=== PATIENT | female | born 1995 | race Caucasian/White ===

== ENCOUNTER 2016-10-28 01:49 | Emergency (ER) | payer BC ==
[2016-10-28 02:01] VITALS: RESP 16; TEMP 98.4
[2016-10-28] MEDS ORDERED: ONDANSETRON DISINTEGRATING 4 MG TAB ONE (02:12)
[2016-10-28] MEDS ORDERED: ONDANSETRON DISINTEGRATING 4 MG TAB PO ONE (02:14)
--- NOTE | 2016-10-28 02:16 | EDPHY ---
H & P Stated Complaint: vomiting since yesterday evening, possible blood in vomit Time Seen by Provider: 10/28/16 02:04 HPI/ROS: Chief complaint: Vomiting blood HPI: 21-year-old female states she was drinking alcohol for most of the day yesterday including beer and vodka. About 5 o'clock in the afternoon she started feeling nausea and started vomiting. Patient states she vomited again about 9 o'clock in the evening. Patient states that this is continued she woke up this morning felt nauseated and vomited bleed at this time there is some blood in it. States she has only been able to keep a few sips of water down since earlier today. Does not have any abdominal pain. No fevers or chills. No diarrhea. Does not have a history of any gastrointestinal problems in the past. ROS: 10 point Review of Systems is negative except as noted in the HPI. Past medical history: None Medications none Allergies: Latex Physical exam: Gen: Awake, Alert, No Distress HEENT: Nose: no rhinorrhea Eyes: PERRLA, EOMI Mouth: Moist mucosa Neck: Supple, no JVD Chest: nontender, lungs clear to auscultation Heart: S1, S2 normal, no murmur Abd: Soft, non-tender, no guarding Back: no CVA tenderness, no midline tenderness Ext: no edema, non-tender Skin: no rash Neuro: CN II-XII intact, Sensation grossly intact, Strength 5/5 in bilateral upper and lower extremities - Personal History LMP (Females 10-55): 22-28 Days Ago Current Tetanus/Diphtheria Vaccine: Yes - Medical/Surgical History Hx Asthma: Yes Hx Chronic Respiratory Disease: No Hx Diabetes: No Hx Cardiac Disease: No Hx Renal Disease: No Hx Cirrhosis: No Hx Alcoholism: No Hx HIV/AIDS: No Hx Splenectomy or Spleen Trauma: No Other PMH: PSHx: wisdom tooth extraction. PMHx: denies - Social History Smoking Status: Never smoked Constitutional: Initial Vital Signs Temperature (C) 36.9 C 10/28/16 01:57 Heart Rate 122 H 10/28/16 01:57 Respiratory Rate 16 10/28/16 01:57 Blood Pressure 132/79 H 10/28/16 01:57 O2 Sat (%) 95 10/28/16 01:57 O2 Delivery Mode Room Air Allergies/Adverse Reactions: Latex, Natural Rubber Allergy (Verified 10/28/16 01:56) Home Medications: Medication Instructions Recorded [place] 28 Tablet 10/28/16 Departure - Departure Disposition: Home, Routine, Self-Care Clinical Impression: Ethyl alcohol poisoning, Julianne-Stokes tear Condition: Good Instructions: Julianne-Stokes Syndrome (ED), At-Risk Alcohol Use (ED) Additional Instructions: Please try to avoid binge drinking alcohol. Referrals: Patient,NotPresent [Primary Care Provider] - As per Instructions
[2016-10-28 02:54] VITALS: BP 124/78; PULSE 98; O2SAT 96
== END 2016-10-28 02:55 | disposition home or self-care (01) ==
DX: T51.91XA Toxic effect of unspecified alcohol, accidental (unintentional), initial encounter (principal); K22.6 Gastro-esophageal laceration-hemorrhage syndrome; J45.909 Unspecified asthma, uncomplicated; Z91.040 Latex allergy status